=== PATIENT | female | born 1985 | race Two or more races ===

== ENCOUNTER 2017-07-16 15:32 | Emergency (ER) | payer BC ==
[~2017-07-16] VITALS: Ht 157.5 cm; Wt 45.8 kg
[2017-07-16 16:15] VITALS: BP 116/66
== END 2017-07-16 16:21 | disposition home or self-care (01) ==
LOC: ER 15:34
DX: M54.5 Low back pain (principal); M54.2 Cervicalgia; V43.52XA Car driver injured in collision with other type car in traffic accident, initial encounter; Y93.89 Activity, other specified; Y92.89 Other specified places as the place of occurrence of the external cause; Y99.8 Other external cause status
CPT/HCPCS: A4606; Z7610